=== PATIENT | female | born 2000 | race Hispanic/Latino ===

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

== ENCOUNTER 2019-02-21 17:25 | Inpatient (IN) | payer OTHER ==
[2019-02-21 18:01] VITALS: BMI 29.7
[2019-02-21] MEDS ORDERED: Ondansetron PF 4 MG/2 ML Vial IVP PRN (18:37)
[2019-02-21] MEDS ORDERED: Acetaminophen 500 MG TAB PO PRN (18:37)
[2019-02-21] MEDS ORDERED: Lidocaine 1% (PF) 30 ML VIAL SC PRN (18:37)
[2019-02-21] MEDS ORDERED: hydrALAZINE 20 MG/ML VIAL SLOW IVP PRN ×2 (18:37)
[2019-02-21] MEDS ORDERED: Promethazine HCl 25 MG/ML VIAL IM PRN (18:37)
--- NOTE | 2019-02-21 18:52 | PDOC.LDHP ---
Labor and Delivery H&P Chief complaint: contractions HPI: Pt is a 18 y/o at 38.2wga per LMP. Hx/o late care and poor f/u afterward. Ctx started 10am today. Denies LOF or Vaginal bleeding. Denies problems with , but does report she was pos for Chlamydia in 2nd trimester and again on Monday. Denies SANCHEZ, vision changes or feeling unwell, but ctx are painful. Reported hx/o anemia and taking PNV. OB History Details: 2 term 's delivered at 40wga. Current complications: none Abnormal US findings: No Current medications: pre- vitamins, iron Previous surgical history: none Allergies/Adverse Reactions: Allergies Allergy/AdvReac Type Severity Reaction Status Date / Time No Known Allergies Allergy Verified 06/14/17 12:09 Social history: none - Physical Exam Vital signs reviewed and normal: yes General: NAD Heart: RRR Lungs: nonlabored breathing Abdomen: NTTP Extremeties: trace edema FHT: category 1, variability present [place] contractions every: 4-5min - Vaginal Exam cm dilated: 7 Effacement: 90% Station: -2 - OB Labs Blood type: A RH: positive Antibody Screen: negative HIV: negative RPR: negative HEPSAg: negative 1 hour GCT: negative GBS: unknown Urine drug screen: not done Rubella: immune - Assessment L&D Assessment: term patient in labor Pt is a 18 y/o at 38.2wga per LMP 1. sIUP: Pt in active labor, continuous monitoring and augment as needed 2. GBS Unknown: Start Prophylaxis. Possibly performed on Sunday 02/18, but do not have records for that visit. 3. Poor care: Dating by LMP. Normal Anatomy US, will order 3rd T labs 4. Chlamydia Cervitis: Will treat with Azithro 1000mg - Plan Plan: admit to L&D, labor augmentation if indicated, GBS antibiotic prophylaxis
[2019-02-21] MEDS ORDERED: Penicillin G Potassium 5 MILL.UNITS VIAL ONE (18:53)
[2019-02-21] MEDS ORDERED: Penicillin G Potassium 5 MILL.UNITS in Sodium Chloride 0.9% 100 ML IVPB SCH (19:00)
[2019-02-21 19:01] LABS: Hemoglobin 8.3 g/dL (12.0-16.0); Mean Corpuscular HGB CONC 32.4 g/dL (32.0-36.0); Mean Corpuscular Hemoglobin 21.1 pg (25.0-35.0); Mean Corpuscular Volume 65.3 fL (78.0-98.0); Mean Platelet Volume 9.5 fL (7.4-10.4); Platelet Count 324 thou/uL (130-400); RBC Distribution Width 17.4 % (11.5-14.5); Red Blood Cell (RBC) Count 3.94 mill/uL (4.00-5.20); White Blood Cell (WBC) Count 11.6 thou/uL (4.8-10.8)
[2019-02-21] MEDS ORDERED: Lidocaine 1% (PF) 30 ML VIAL ONE (19:08)
[2019-02-21] MEDS: Lactated Ringer's 1,000 ML IV SCH (19:15)
[2019-02-21] MEDS ORDERED: Azithromycin 250 MG TAB PO SCH (19:15)
[2019-02-21] MEDS ORDERED: Misoprostol 200 MCG TAB ONE (19:18)
[2019-02-21 19:42] LABS: HBSAg Index 0.23 S/CO (0-0.99); HIV (1/2) Antibody/Antigen Non-Reactive (NonReactive); HIV 1/2 INDEX 0.09 S/CO (<1.00); Hep B Surf Ag Non-Reactive S/CO (NonReactive); Syphilis Antibody Nonreactive (Nonreactive); Syphilis Antibody Index 0.07 S/CO (<1.00 Non-Reactive)
[2019-02-21] MEDS ORDERED: Azithromycin 1,000 MG, Admixture Fee 1 EACH in Sodium Chloride 0.9% 500 ML IVPB SCH (20:30)
--- NOTE | 2019-02-21 21:38 | PDOC.EVN ---
Event Note - Event Note Event Note: Vaginal Delivery Dictation Guideline Delivering Physician : Drs. Carroll & Ofe Attending : Dr. Gomes Procedure: Spontaneous Vaginal Delivery Anesthesia: none EBL: 100 ml Pre-op Diagnosis: 1. Term intrauterine in labor 2. Hx of chlamydial infectoin 3. Late transfer of care Post-op Diagnosis: 1. Term intrauterine , delivered 2. Chlmaydia, treated 02/21 3. Same as above Indications: A 18y/o female who presents in active labor Delivery Note: This is 18yo F @ 38.2wks who delivered a viable F on 02/21 @ 2116 Following an uneventful antepartum course, a vigorous F was delivered over an intact perineum in the OA position. Anterior Shoulder and then remainder of the body delivered. Nuchal x1. The head was held down and mouth and nares were bulb suctioned. Cord clamped and cut and cord blood collected. Placenta delivered intact [place] presentation with a 3 vessel cord noted. Fundal massage was performed and the fundus was firm. The cervix and vagina were inspected and superficial 1st degree perineal laceration which was found to be hemostatic. Infant went to nursery in good condition for routine care. Apgars were 9/9 at 1 & 5 minutes, respectively. Patient tolerated delivery well and went to after routine recovery/care.
[2019-02-21] MEDS: NS / Oxytocin 40 units/1000ml 1,000 ML IV PRN (22:06)
[2019-02-21] MEDS ORDERED: Penicillin G 2.5 MILL.units 2.5 MILL.UNITS in Premix Bag 1 BAG IVPB SCH (23:00)
[2019-02-22] MEDS: NS / Oxytocin 40 units/1000ml 1,000 ML IV PRN ×2 (00:06→00:07)
[2019-02-22] MEDS ORDERED: NS / Oxytocin 40 units/1000ml 1,000 ML IV SCH (03:21)
[2019-02-22] MEDS ORDERED: Benzocaine-Menthol 82.5 ML CAN TOP PRN (03:21)
[2019-02-22] MEDS ORDERED: Milk Of Magnesia 30 ML UDCUP PO PRN (03:21)
[2019-02-22] MEDS ORDERED: Lanolin Ointment 7 GM TUBE TOP PRN (03:21)
[2019-02-22] MEDS ORDERED: Preparation H Ointment 28 GM TUBE PR PRN (03:21)
[2019-02-22] MEDS ORDERED: Bisacodyl 10 MG SUPP PR PRN (03:21)
[2019-02-22] MEDS ORDERED: Ibuprofen 800 MG TAB PO SCH (03:30)
--- NOTE | 2019-02-22 06:31 | PDOC.PP ---
Post Progress Note Post Day #: 1 Subjective: pain controlled breast feeding well. PO intake tolerated: yes Flatus: no Ambulation: yes Weight Weight 78.471 kg - Physical Examination General: NAD Cardiovascular: no m/r/g, RRR Respiratory: clear to auscultation bilaterally, non-labored breathing Abdominal: + bowel sounds, lochia, no distention, appropriately TTP Fundus firm & at: umbilicus Extremities: negative homans (B) Neurological: no gross focal deficits Psychiatric: A&Ox3, normal affect Result Diagrams: 02/21/19 18:50 Additional Labs: Post Labs Blood Type A POSITIVE 02/21/19 18:50 Hep Bs Antigen Non-Reactive S/CO (NonReactive) 02/21/19 18:50 (1) Status: Acute (2) care and examination Code(s): Z39.2 - ENCOUNTER FOR ROUTINE FOLLOW-UP Status: Acute (3) Chlamydial cervicitis Code(s): A56.09 - OTHER CHLAMYDIAL INFECTION OF LOWER GENITOURINARY TRACT Status: Acute (4) Anemia affecting Code(s): O99.019 - ANEMIA COMPLICATING , UNSPECIFIED TRIMESTER Status : Acute Qualifiers: Trimester: third trimester Qualified Code(s): O99.013 - Anemia complicating , third trimester - Assessment/Plan 1. PP care: continue Ibuprofen for pain control. encouraged breast feeding. will discuss contraception tomorrow. 2. Anemia: repeat H&H pending. continue PO iron 3. Chlamydia cervicitis: treated with Azithromycin 1g IV prior to delivery. RONNY in clinic. Will get updated records today. Dispo: D/C tomorrow.
[2019-02-22 07:28] LABS: Hemoglobin 8.1 g/dL (12.0-16.0); Mean Corpuscular HGB CONC 31.1 g/dL (32.0-36.0); Mean Corpuscular Hemoglobin 20.4 pg (25.0-35.0); Mean Corpuscular Volume 65.6 fL (78.0-98.0); Mean Platelet Volume 9.9 fL (7.4-10.4); Platelet Count 281 thou/uL (130-400); RBC Distribution Width 17.5 % (11.5-14.5); Red Blood Cell (RBC) Count 3.96 mill/uL (4.00-5.20); White Blood Cell (WBC) Count 16.7 thou/uL (4.8-10.8)
[2019-02-22] MEDS: Docusate Calcium (SURFAK) 240 MG CAP PO SCH ×3 (08:25→20:58)
[2019-02-22] MEDS: Prenatal Vitamin 1 TAB PO SCH ×2 (08:25→18:04)
[2019-02-22] MEDS: Ferrous Sulfate 325 MG TAB PO SCH ×3 (08:25→18:04)
[2019-02-22] MEDS: Lactated Ringer's 1,000 ML IV SCH (08:29)
[2019-02-22] MEDS ORDERED: Adacel (T-DAP) 0.5 ML SYRINGE IM ONE (09:00)
[2019-02-22] MEDS: Ibuprofen 800 MG TAB PO SCH ×2 (13:32→20:58)
[2019-02-23] MEDS: Ibuprofen 800 MG TAB PO SCH (05:26)
--- NOTE | 2019-02-23 06:52 | PDOC.PP ---
Post Progress Note Post Day #: 2 Subjective: no pain. well. PO intake tolerated: yes Flatus: yes Ambulation: yes Vital Signs (12 hours) Temp Pulse Resp BP Pulse Ox 02/22/19 20:50 97.6 F 69 18 106/56 L 98 Weight Weight 78.471 kg - Physical Examination General: NAD Cardiovascular: no m/r/g, RRR Respiratory: clear to auscultation bilaterally, non-labored breathing Abdominal: + bowel sounds, lochia Fundus firm & at: below umbilicus Extremities: negative homans (B) Skin: CS incision dry & intact Neurological: no gross focal deficits Psychiatric: A&Ox3, normal affect Result Diagrams: 02/22/19 07:12 Additional Labs: Post Labs Blood Type A POSITIVE 02/21/19 18:50 Hep Bs Antigen Non-Reactive S/CO (NonReactive) 02/21/19 18:50 (1) Status: Acute Qualifiers: Weeks of gestation: 38 weeks Qualified Code(s): Z3A.38 - 38 weeks gestation of (2) care and examination Code(s): Z39.2 - ENCOUNTER FOR ROUTINE FOLLOW-UP Status: Acute (3) Chlamydial cervicitis Code(s): A56.09 - OTHER CHLAMYDIAL INFECTION OF LOWER GENITOURINARY TRACT Status: Acute (4) Anemia affecting Code(s): O99.019 - ANEMIA COMPLICATING , UNSPECIFIED TRIMESTER Status : Acute Qualifiers: Trimester: third trimester Qualified Code(s): O99.013 - Anemia complicating , third trimester - Assessment/Plan 1. PP care: continue Ibuprofen for pain control. encouraged breast feeding. will discuss contraception in clinic. 2. Anemia: H&H stable. continue PO iron 3. Chlamydia cervicitis: treated with Azithromycin 1g IV prior to delivery. RONNY in clinic. Dispo: D/C home vs B&B pending GBS and bili results from baby.
[2019-02-23 08:07] VITALS: BP 123/81; TEMP 98
[2019-02-23] MEDS: Ferrous Sulfate 325 MG TAB PO SCH (08:41)
[2019-02-23] MEDS: Prenatal Vitamin 1 TAB PO SCH (08:41)
[2019-02-23] MEDS: Docusate Calcium (SURFAK) 240 MG CAP PO SCH (08:41)
== END 2019-02-23 13:15 | disposition home or self-care (01) | DRG 806 ==
LOC: L&D/OP 17:25 → L&D 18:43 → 3SW 02-22 06:42
PROVIDERS: ADMIT Obstetrics & Gynecology; ATTEND Obstetrics & Gynecology
PROC: 10E0XZZ Delivery of Products of Conception, External Approach (ICD-10-PCS; principal; 2019-02-22)
DX: O99.02 Anemia complicating childbirth (principal); O98.32 Other infections with a predominantly sexual mode of transmission complicating childbirth; Z37.0 Single live birth; Z3A.40 40 weeks gestation of pregnancy; A56.09 Other chlamydial infection of lower genitourinary tract; D64.9 Anemia, unspecified
CPT/HCPCS: 36415; 85027; 86780; 86850; 86900; 86901; 87340; 87389; 99285; J0456; J2001; J2540; J7050

== ENCOUNTER 2019-10-09 21:25 | Emergency (ER) | payer OTHER, SELFPAY ==
[2019-10-09] MEDS ORDERED: Ondansetron PF 4 MG/2 ML Vial ONE ×2 (21:37→21:42)
[2019-10-09 21:51] LABS: #Lymphocytes 0.8 thou/uL (1.20-3.40); #Monocytes 0.3 thou/uL (0.11-0.59); #Neutrophils 12.5 thou/uL (1.40-6.50); %Basophils 0.1 % (0.0-1.0); %Eosinophils 0.2 % (0.0-10.0); %Lymphocytes 5.8 % (21.0-51.0); %Monocytes 2.5 % (0.0-10.0); %Neutrophils 91.3 % (42.0-75.0); Hemoglobin 12.8 g/dL (12.0-16.0); Mean Corpuscular HGB CONC 31.7 g/dL (32.0-36.0); Mean Corpuscular Hemoglobin 24.4 pg (27.0-31.0); Mean Platelet Volume 8.2 fL (7.4-10.4); Platelet Count 351 thou/uL (130-400); RBC Distribution Width 14.9 % (11.5-14.5); Red Blood Cell (RBC) Count 5.25 mill/uL (4.20-5.40); White Blood Cell (WBC) Count 13.6 thou/uL (4.8-10.8)
[2019-10-09 21:52] LABS: BHCG - Serum Negative (NEGATIVE); Pregs Control Background? CLEAR/WHITE (CLR/WHITE); Pregs Control Bar Appear? YES (CONTROL BAR)
[2019-10-09 22:09] LABS: ALT (SGPT) 14 U/L (8-55); AST (SGOT) 14 U/L (5-34); Albumin 4.4 g/dL (3.5-5.0); Alkaline Phosphatase 105 U/L (40-110); Anion Gap 13 mmol/L (10-20); BUN (Urea Nitrogen) 11 mg/dL (7.0-18.7); Bilirubin, Total 0.4 mg/dL (0.2-1.2); Calc. Creatinine Clearance 0 mL/min (70-130); Calcium 9.1 mg/dL (7.8-10.44); Carbon Dioxide 26 mmol/L (22-29); Chloride 103 mmol/L (98-107); Estimated GFR-MDRD Greater than 90; Globulin 4.3 g/dL (2.4-3.5); Glucose 111 mg/dL (70-105); Lipase 14 U/L (8-78); Potassium 3.5 mmol/L (3.5-5.1); Protein, Total 8.7 g/dL (6.0-8.3); Sodium 138 mmol/L (136-145)
[2019-10-10 01:02] LABS: Bacteria/HPF None Seen HPF (None Seen); Bilirubin Negative (Negative); Blood, Urine Negative (Negative); Clarity Clear (Clear); Glucose, Urine (Dipstick) Normal (Negative); Leukocyte 25 Leu/uL (Negative); Nitrite Negative (Negative); Protein, Urine (Dipstick) Negative (Neg-Trace); RBC/HPF 0-3 HPF (0-3); Squamous Epithelial 0-3 HPF (0-3); Urobilinogen Normal mg/dL (Less than 2)
[2019-10-10] MEDS ORDERED: cefTRIAXone\\ROCEPHIN 1 GM VIAL ONE (01:06)
[2019-10-10] MEDS ORDERED: Acetaminophen 500 MG TAB ONE (02:28)
[2019-10-10] MEDS ORDERED: Acetaminophen 325 MG/10.15 ML UDCUP ONE ×2 (02:29→02:31)
[2019-10-10 02:48] LABS: Amphetamine Not Detected (NotDetected); Barbiturates Screen Not Detected (NotDetected); Benzodiazepine Screen Not Detected (NotDetected); Cocaine Metabolite Screen Not Detected (NotDetected); Medtox Control Line Valid? VALID (VALID); Medtox Reader # READER 4; Methadone Not Detected (NotDetected); Methamphetamine Not Detected (NotDetected); Opiate Screen Not Detected (NotDetected); Oxycodone Screen Not Detected (NotDetected); Phencyclidine (PCP) Not Detected (NotDetected); THC/Cannabinoid Screen Not Detected (NotDetected); Tricyclic Screen Not Detected (NotDetected)
[2019-10-10 04:34] LABS: Lactic Acid 3.2 mmol/L (0.5-2.2)
== END 2019-10-10 04:38 | disposition home or self-care (01) ==
LOC: ERS 21:25
DX: N39.0 Urinary tract infection, site not specified (principal); R11.2 Nausea with vomiting, unspecified
CPT/HCPCS: 36415; 80053; 80306; 81003; 81015; 83605; 83690; 84443; 84703; 85025; 87040; 87077; 87086; 93005; 96361; 96365; 96375; J0696; J2405

== ENCOUNTER 2023-02-13 19:01 | Emergency (ER) | payer SELFPAY ==
[2023-02-13 19:36] LABS: #Monocytes 0.4 thou/uL (0.11-0.59); #Neutrophils 7.4 thou/uL (1.40-6.50); %Basophils 0.2 % (0.0-1.0); %Eosinophils 0.3 % (0.0-10.0); %Lymphocytes 18.4 % (21.0-51.0); %Monocytes 3.6 % (0.0-10.0); %Neutrophils 77.2 % (42.0-75.0); Hemoglobin 12.2 g/dL (12.0-16.0); Mean Corpuscular HGB CONC 33.2 g/dL (32.0-36.0); Mean Corpuscular Volume 75.4 fl (78.0-98.0); Mean Platelet Volume 10.2 fL (7.4-10.4); Platelet Count 283 10x3/uL (130-400); RBC Distribution Width 14.6 % (11.5-14.5); Red Blood Cell (RBC) Count 4.88 mill/uL (4.20-5.40); White Blood Cell (WBC) Count 9.7 10x3/uL (4.8-10.8)
[2023-02-13 19:44] LABS: BHCG - Serum POSITIVE (NEGATIVE); Pregs Control Background? CLEAR/WHITE (CLR/WHITE); Pregs Control Bar Appear? YES (CONTROL BAR)
[2023-02-13 20:00] LABS: ALT (SGPT) Less than 7 U/L (8-55); AST (SGOT) 11 U/L (5-34); Alkaline Phosphatase 80 U/L (40-110); Anion Gap 16 mmol/L (10-20); BUN (Urea Nitrogen) 9 mg/dL (7.0-18.7); Bilirubin, Total 0.3 mg/dL (0.2-1.2); Calc. Creatinine Clearance 0 mL/min (70-130); Calcium 9.5 mg/dL (7.8-10.44); Carbon Dioxide 19 mmol/L (22-29); Chloride 104 mmol/L (98-107); Estimated GFR 124; Glucose 82 mg/dL (70-105); Sodium 135 mmol/L (136-145)
[2023-02-13 20:02] LABS: Albumin 3.7 g/dL (3.5-5.0); Globulin 4.3 g/dL (2.4-3.5)
[2023-02-13] MEDS ORDERED: Ondansetron PF 4 MG/2 ML Vial ONE (21:58)
[2023-02-13] MEDS ORDERED: Ondansetron ODT 4 MG TAB ONE (22:02)
[2023-02-13] MEDS ORDERED: Acetaminophen 500 MG TAB ONE (22:02)
[2023-02-13] MEDS ORDERED: Acetaminophen 325 MG/10.15 ML UDCUP ONE (22:05)
== END 2023-02-13 22:26 | disposition home or self-care (01) ==
LOC: ERS 19:01
DX: O99.611 Diseases of the digestive system complicating pregnancy, first trimester (principal); O29.41 Spinal and epidural anesthesia induced headache during pregnancy, first trimester; Z3A.12 12 weeks gestation of pregnancy
CPT/HCPCS: 36415; 80053; 84703; 85025; 99284; J2405; Q0162